=== PATIENT | female | born 1985 | race Caucasian/White ===

== ENCOUNTER 2017-03-10 09:05 | Inpatient (IN) | payer OTHER ==
[2017-03-10] VITALS (82 sets, daily range): BP systolic 106–143; BP diastolic 68–99; PULSE 99–142; RESP 17–19; TEMP 98–99.5; O2SAT 96–99
[~2017-03-10] VITALS: Ht 170.2 cm; Wt 74.0 kg
--- NOTE | 2017-03-10 10:02 | PD ---
HPI Chief Complaint Contractions Date Seen: Mar 10, 2017 Time Seen: 09:45 Travel History International Travel<30 Days: No Contact w/Intl Traveler<30Days: No Known Affected Area: No History of Present Illness HPI Patient is a 31-year-old at 39 weeks and 4 days who presents with contractions. She says that they first started around 5 AM, when they woke her up from sleep. Her contractions are as frequent as every 2-3 minutes. She also noticed some bloody show, or some brownish vaginal discharge on her panty liner and when she was wiping this morning. She denies any leakage of fluid. She reports movement is at baseline. She is a patient of Dr. Singer. She says she is GBS negative. History Past Medical History Narrative Medical Patient reports a vaginal cyst Obstetric History Obstetric History She says this has been an uncomplicated so far. She did have one episode of high blood pressure to 140s over 90s, but that was an isolated episode. Past Surgical History Narrative Surgical Left cheek cyst removal, wisdom teeth removal Family History Narrative Family History Her mother and father of lung cancer, they were both smokers. Social History Narrative Social History She lives at home with her . Alcohol Use: No Tobacco Use: No Substance Abuse: No Allergies-Medications (Allergen,Severity, Reaction): Coded Allergies: hydrocodone (Verified Adverse Reaction, Mild, vomiting, 03/10/17) Comments Hydrocodone causes vomiting Review of Systems General / Constitutional: No: Fever, Chills Eyes: No: Visual changes HENT: No: Headaches Cardiovascular: No: Chest Pain or Discomfort Respiratory: No: Short of Breath Gastrointestinal: Abdominal Pain, No: Nausea, Vomiting Genitourinary: No: Dysuria Musculoskeletal: Cramping, Pain, No: Edema Physical Exam bp 125/80, 131/91 Pulse 101-117 Respirations 18 Narrative GENERAL: Well-nourished, well-developed patient. SKIN: Warm and dry. HEAD: Normocephalic and atraumatic. EYES: No scleral icterus. No injection or drainage. ENT: No nasal drainage noted. Mucous membranes pink. Airway patent. NECK: Supple, trachea midline. No JVD. CARDIOVASCULAR: Regular rate and rhythm without murmurs, gallops, or rubs. RESPIRATORY: Breath sounds equal bilaterally. No accessory muscle use. ABDOMEN/GI: Abdomen soft, non-tender, bowel sounds present, no rebound, no guarding Gravid to 40 weeks size GENITOURINARY: External Genitalia: intact and normal in appearance Dilatation: 6-7 cm Effacement: 80% Station: -1 Presentation: Vertex Membranes: Tact Uterine Contractions: Every 3 minutes FHT's: Category: Category 1 Baseline: 130 Reactive: Reactive Variability: Moderate Decels: none EXTREMITIES: No cyanosis or edema. BACK: Nontender without obvious deformity. No CVA tenderness. NEUROLOGICAL: Awake and alert. Motor and sensory grossly within normal limits. Five out of 5 muscle strength in all muscle groups. Normal speech. Data Data Vital Signs Reviewed: Yes MDM Plan Patient is a 31-year-old at 39 weeks and 4 days who presents with contractions and cervical exam showing 6 cm of dilation, 80% effacement, -1 station. She is a patient of Dr. Singer. She says she is GBS negative. 1. Patient in labor -Plan to admit for routine labor and delivery -LR IV -Fentanyl when necessary for pain -Routine blood work including blood type and screen, hold clot, CBC, UDS, UA -Monitor heart rate, vital signs, labor status/tocometry -Patient considering epidural -Anticipate normal vaginal delivery Discussed with Dr. Villanueva Diagnosis Diagnosis: Primary Impression: Admitted to labor and delivery Elvin Taylor MD R2 Mar 10, 2017 10:02
[2017-03-10] MEDS ORDERED: LACTATED RINGER'S 1000 ML INJ 1,000 ML IV PRN (10:44)
[2017-03-10] MEDS ORDERED: LIDOCAINE HCL 1% 50 ML VIAL INFIL PRN (10:45)
[2017-03-10] MEDS ORDERED: SODIUM CHLORID 0.9% 500 ML INJ 500 ML OTHER PRN (10:45)
[2017-03-10] MEDS ORDERED: MINERAL OIL 10 ML VIAL TOPICAL PRN (10:45)
[2017-03-10] MEDS ORDERED: CITRIC ACID-SODIUM CITRATE LIQ 30 ML UDC PO SCH (10:45)
[2017-03-10] MEDS ORDERED: LIDOCAINE HCL 1% 50 ML VIAL I-DERMAL PRN (10:45)
[2017-03-10] MEDS ORDERED: OXYTOCIN 30 UNITS-500ML PREMIX 500 ML IV ONE ×3 (10:45→21:15)
--- NOTE | 2017-03-10 10:50 | HHI.HP ---
History & Physical H&P HPI HPI Chief Complaint Contractions Date Seen: Mar 10, 2017 Time Seen: 09:45 Travel History International Travel<30 Days: No Contact w/Intl Traveler<30Days: No Known Affected Area: No History of Present Illness HPI Patient is a 31-year-old at 39 weeks and 4 days who presents with contractions. She says that they first started around 5 AM, when they woke her up from sleep. Her contractions are as frequent as every 2-3 minutes. She also noticed some bloody show, or some brownish vaginal discharge on her panty liner and when she was wiping this morning. She denies any leakage of fluid. She reports movement is at baseline. She is a patient of Dr. Singer. She says she is GBS negative. History (Limited) History Past Medical History Narrative Medical Patient reports a vaginal cyst Obstetric History Obstetric History She says this has been an uncomplicated so far. She did have one episode of high blood pressure to 140s over 90s, but that was an isolated episode. Past Surgical History Narrative Surgical Left cheek cyst removal, wisdom teeth removal Family History Narrative Family History Her mother and father of lung cancer, they were both smokers. Social History Narrative Social History She lives at home with her . Alcohol Use: No Tobacco Use: No Substance Abuse: No Allergies-Medications Allergies-Medications (Allergen,Severity, Reaction): Coded Allergies: hydrocodone (Verified Adverse Reaction, Mild, vomiting, 03/10/17) Comments Hydrocodone causes vomiting ROS Review of Systems General / Constitutional: No: Fever, Chills Eyes: No: Visual changes HENT: No: Headaches Cardiovascular: No: Chest Pain or Discomfort Respiratory: No: Short of Breath Gastrointestinal: Abdominal Pain, No: Nausea, Vomiting Genitourinary: No: Dysuria Musculoskeletal: Cramping, Pain, No: Edema Physical Exam Physical Exam bp 125/80, 131/91 Pulse 101-117 Respirations 18 Narrative GENERAL: Well-nourished, well-developed patient. SKIN: Warm and dry. HEAD: Normocephalic and atraumatic. EYES: No scleral icterus. No injection or drainage. ENT: No nasal drainage noted. Mucous membranes pink. Airway patent. NECK: Supple, trachea midline. No JVD. CARDIOVASCULAR: Regular rate and rhythm without murmurs, gallops, or rubs. RESPIRATORY: Breath sounds equal bilaterally. No accessory muscle use. ABDOMEN/GI: Abdomen soft, non-tender, bowel sounds present, no rebound, no guarding Gravid to 40 weeks size GENITOURINARY: External Genitalia: intact and normal in appearance Dilatation: 6-7 cm Effacement: 80% Station: -1 Presentation: Vertex Membranes: Tact Uterine Contractions: Every 3 minutes FHT's: Category: Category 1 Baseline: 130 Reactive: Reactive Variability: Moderate Decels: none EXTREMITIES: No cyanosis or edema. BACK: Nontender without obvious deformity. No CVA tenderness. NEUROLOGICAL: Awake and alert. Motor and sensory grossly within normal limits. Five out of 5 muscle strength in all muscle groups. Normal speech. Data Data Data Vital Signs Reviewed: Yes MDM MDM Plan Patient is a 31-year-old at 39 weeks and 4 days who presents with contractions and cervical exam showing 6 cm of dilation, 80% effacement, -1 station. She is a patient of Dr. Singer. She says she is GBS negative. 1. Patient in labor -Plan to admit for routine labor and delivery -LR IV -Fentanyl when necessary for pain -Routine blood work including blood type and screen, hold clot, CBC, UDS, UA -Monitor heart rate, vital signs, labor status/tocometry -Patient considering epidural -Anticipate normal vaginal delivery Discussed with Dr. Villanueva Diagnosis Diagnosis: Primary Impression: Admitted to labor and delivery Elvin Taylor MD R2 Mar 10, 2017 10:50
[2017-03-10] MEDS ORDERED: PREN29TA PO (10:54)
[2017-03-10] MEDS ORDERED: FERR1TAB37 PO (10:54)
[2017-03-10] MEDS ORDERED: ZANT150T2 PO (10:55)
[2017-03-10 10:56] LABS: AUTOMATED NEUTROPHIL # 9.8 TH/MM3 (1.8-7.7); BASOPHIL % 0.3 % (0.0-2.0); EOSINOPHIL # 0.1 TH/MM3 (0-0.4); EOSINOPHIL % 0.5 % (0.0-4.0); HEMATOCRIT 38.9 % (35.0-46.0); HEMO FLAGS DIFF FINAL; LYMPH % 14.7 % (9.0-44.0); LYMPHOCYTE # 1.8 TH/MM3 (1.0-4.8); MEAN CELL VOLUME 92.6 FL (80.0-100.0); MEAN CORPUSCULAR HEMOGLOBIN 32.6 PG (27.0-34.0); MEAN CORPUSCULAR HGB CONC 35.2 % (32.0-36.0); MONO % 5.9 % (0.0-8.0); NEUT % 78.6 % (16.0-70.0); PLATELET COUNT 204 TH/MM3 (150-450); WHITE BLOOD COUNT 12.5 TH/MM3 (4.0-11.0)
[2017-03-10] MEDS ORDERED: COLA100C5 (10:57)
[2017-03-10] MEDS ORDERED: colace PO (10:57)
[2017-03-10 11:04] LABS: BACTERIA, URINE OCC /hpf; BLOOD, URINE MOD (NEG); COMMENT (UR) CULT NOT INDICATED; CULTURE IF INDICATED CULT NOT INDICATED; GLUCOSE,URINE NEG (NEG); KETONE, URINE NEG (NEG); MUCUS URINE FEW /lpf (OCC); NITRITE,URINE NEG (NEG); SQUAMOUS EPITHELIAL CELL URINE 14 /hpf (0-5); URINE COLOR YELLOW (YELLW/STRAW)
[2017-03-10] MEDS ORDERED: SODIUM CHLOR 0.9% 1000 ML INJ 1,000 ML OTHER PRN (11:04)
[2017-03-10] MEDS: LACTATED RINGER'S 1000 ML INJ 1,000 ML IV SCH ×2 (12:32→13:20)
[2017-03-10] MEDS ORDERED: fentaNYL 2MCG-BUPIV 0.125% INJ 100 ML ONE (12:48)
[2017-03-10] MEDS ORDERED: ePHEDrine/NS 25 MG/5 ML SYR IV PUSH PRN (14:00)
[2017-03-10] MEDS ORDERED: NO SYSTEM NARCOTICS PRN (14:00)
[2017-03-10] MEDS ORDERED: DO NOT ADMINISTER ANTICOAGULANTS PRN (14:00)
[2017-03-10] MEDS ORDERED: BUPIVACAINE HCL PF 0.25% 10 ML VIAL ONE (15:46)
[2017-03-10] MEDS ORDERED: LIDOCAINE HCL 1.5% PF SOLN 20 ML AMP ONE (15:46)
[2017-03-10] MEDS: fentaNYL 2MCG-BUPIV 0.125% 100 ML EPIDURAL SCH ×2 (19:06→19:07)
[2017-03-10] MEDS ORDERED: KETOROLAC TROMETHAMINE 60 MG/2 ML (IM) VIAL IM ONE ×2 (20:22→21:13)
[2017-03-10] MEDS ORDERED: EPIDURAL-DO NOT ADMINISTER ANTICOAGULANTS PRN (20:22)
[2017-03-10] MEDS ORDERED: ACETAMINOPHEN 1000 MG/100 ML 100 ML IV ONE ×3 (20:22→21:15)
[2017-03-10] MEDS ORDERED: EPIDURAL-DIPHENHYDRAMINE HCL 50 MG CAP PO PRN (20:22)
[2017-03-10] MEDS ORDERED: EPIDURAL-NO SYSTEMIC NARCOTICS PRN (20:22)
[2017-03-10] MEDS ORDERED: EPIDURAL-DIPHENHYDRAMINE HCL 50 MG/ML VIAL IV PUSH PRN (20:22)
[2017-03-10] MEDS ORDERED: EPIDURAL-NALOXONE HCL 0.4 MG/ML AMP IV PUSH PRN (20:22)
[2017-03-10] MEDS ORDERED: KETOROLAC TROMETHAMINE 30 MG/ML (IVP) VIAL IV PUSH ONE (20:22)
[2017-03-10] MEDS ORDERED: ONDANSETRON HCL 4 MG/2 ML VIAL IV PUSH PRN (21:15)
[2017-03-10] MEDS ORDERED: oxyCODONE/ACETAMINOPHEN 5 MG/325 MG TAB PO PRN (21:15)
[2017-03-10] MEDS ORDERED: SODIUM CHLORIDE 0.9% FLUSH 10 ML FLUSH IV FLUSH PRN (21:15)
[2017-03-10] MEDS ORDERED: DOCUSATE SODIUM 50 MG/SENNA 8.6 MG TAB PO PRN (21:15)
[2017-03-10] MEDS ORDERED: SIMETHICONE 80 MG CHEWABLE TAB PO PRN (21:15)
[2017-03-10] MEDS ORDERED: DEXAMETHASONE SOD PHOS PF 10 MG/ML VIAL ONE (21:38)
[2017-03-10] MEDS ORDERED: BUPIVACAINE HCL PF 0.5% 30 ML VIAL ONE (21:38)
--- NOTE | 2017-03-10 22:14 | MP ---
cc: EDWIN SINGER DATE OF SURGERY: 03/10/2017 PREOPERATIVE DIAGNOSIS: 1. Intrauterine at term. 2. Transverse arrest of descent. 3. Large sebaceous cyst above the clitoris measuring 1 x 1 cm. POSTOPERATIVE DIAGNOSIS 1. Intrauterine at term. 2. Transverse arrest of descent. 3. Large sebaceous cyst above the clitoris measuring 1 x 1 cm. PROCEDURE: Primary low transverse section, removal of large sebaceous cyst above the clitoris. ANESTHESIA: Epidural. SURGEON: Fritz Singer MD. FINDINGS: Normal male , Apgars 9 and 10, weight 9 pounds 4 ounces, normal tubes, normal ovaries, normal uterus, large sebaceous cyst just above the clitoris which is approximately 1 cm. COMPLICATIONS: None. COUNTS: Correct. ESTIMATED BLOOD LOSS: 550 cc. FLUIDS: Crystalloid DISPOSITION: The patient tolerated the procedure well, went to the Recovery Room in good condition. INDICATIONS FOR PROCEDURE: This is a patient who came in labor and actively went to complete-complete without any difficulty. She pushed for about two hours. She did not even enter the pelvis. She still was at 0 station. Despite her not wanting a , I told her we needed to do this because the baby arrested in descent. She agreed to proceed. We also were going to that out that sebaceous cyst. PROCEDURE IN DETAIL: Under an adequate level of anesthesia, she was prepped and draped for abdominal surgery. A Pfannenstiel incision was made and carried down to the fascia. The fascia was taken off the rectus muscle by blunt and sharp dissection. The rectus muscles were spread bluntly and the peritoneum was entered under direct vision without difficulty. The incision was extended with care to avoid the urinary bladder. A bladder blade was placed and a bladder flap created in the usual fashion. The uterine incision was made in a transverse manner along the lower uterine segment which was not well-developed. It was taken down in the midline until the intrauterine cavity was entered. A large amount of clear fluid was noted. The vertex was grasped with a suction cup and delivered. The hypopharynx and nasopharynx were suctioned and the remainder of the infant delivered without difficulty. The cord was doubly clamped and cut and the infant handed to the resuscitation team present. The placenta was then delivered manually. The uterus was curettaged twice with a wet lap and irrigated with a large amount of fluid. The uterine incision was then repaired with 2-0 Vicryl in a running locking fashion, with the second layer imbricating the first. Hemostasis was excellent. The cul-de-sac and gutters were cleaned of blood and debris. The uterus was delivered back into the abdomen. The rectus muscles were reapproximated with 0 Vicryl in interrupted fashion. The fascia was repaired from lateral to midline with 0 Vicryl and the subcu was repaired with 3-0 Vicryl. The skin was repaired with a 4-0 Vicryl in a subcuticular manner. The wound was sterilely dressed. We made a vertical incision onto the sebaceous cyst. There was a large amount of sebaceous material. We grasped the capsule of the cyst and gently tugged that out. The entire capsule, I believe, was removed. Bleeding was minimal. A Steri-Strip was placed over the incision. She tolerated that well. She went to the recovery room in satisfactory condition. R. MD GWYN Orellana/VIVI /9:22 PM /9:47 PM
[2017-03-11] MEDS ORDERED: LACTATED RINGER'S 1000 ML INJ 1,000 ML IV SCH (02:12)
[2017-03-11 04:00] VITALS: BP 133/85; PULSE 90; RESP 17; TEMP 99; O2SAT 96
[2017-03-11 06:15] LABS: AUTOMATED NEUTROPHIL # 16.6 TH/MM3 (1.8-7.7); HEMATOCRIT 30.9 % (35.0-46.0); HEMO FLAGS DIFF FINAL; LYMPH % 6.9 % (9.0-44.0); LYMPHOCYTE # 1.3 TH/MM3 (1.0-4.8); MEAN CELL VOLUME 93.4 FL (80.0-100.0); MEAN CORPUSCULAR HEMOGLOBIN 32.1 PG (27.0-34.0); MEAN CORPUSCULAR HGB CONC 34.3 % (32.0-36.0); MONO % 5.8 % (0.0-8.0); NEUT % 87.3 % (16.0-70.0); PLATELET COUNT 178 TH/MM3 (150-450); RED BLOOD COUNT 3.31 MIL/MM3 (4.00-5.30); RED CELL DISTRIBUTION WIDTH 13.7 % (11.6-17.2)
[2017-03-11] MEDS ORDERED: OXYTOCIN 30 UNITS-500ML PREMIX 500 ML IV PRN (07:15)
[2017-03-11 07:24] VITALS: BP 130/75; PULSE 100; RESP 18; TEMP 98.9; O2SAT 95
[2017-03-11] MEDS ORDERED: SODIUM CHLORIDE 0.9% FLUSH 10 ML FLUSH IV FLUSH SCH (09:00)
[2017-03-11] MEDS ORDERED: MULTIVIT/MIN/PREN/FOL AC/IRON PRENATAL TAB PO SCH (09:00)
[2017-03-11] MEDS ORDERED: FAMOTIDINE 20 MG TAB PO SCH (09:00)
[2017-03-11] MEDS ORDERED: NON-FORMULARY DRUG (Ranitidine (Zantac) 150 MG) PO SCH (09:00)
[2017-03-11 11:08] VITALS: BP 117/77; PULSE 98; RESP 20; TEMP 98; O2SAT 96
--- NOTE | 2017-03-11 11:29 | HHI.OB ---
Subjective Post Operative Day: 1 Objective Vitals/I&O Vital Signs Date Time Temp Pulse Resp B/P (MAP) Pulse Ox O2 Delivery O2 Flow Rate FiO2 03/11/17 11:08 98.0 96 03/11/17 11:08 98 20 117/77 (90) 03/11/17 07:24 98.9 100 18 130/75 (93) 95 03/11/17 04:00 99.0 17 96 03/11/17 04:00 90 133/85 (101) 03/10/17 23:45 105 18 127/84 (98) 99 03/10/17 23:45 98.6 03/10/17 22:15 107 18 126/80 (95) 03/10/17 22:15 98 03/10/17 22:05 119 18 122/69 (86) 97 03/10/17 21:50 136/69 (91) 03/10/17 21:50 111 18 96 03/10/17 21:35 97 03/10/17 21:35 116 125/68 (87) 03/10/17 21:35 18 03/10/17 21:10 120 18 119/70 (86) 03/10/17 21:10 99.5 98 03/10/17 19:45 137 03/10/17 19:40 133 03/10/17 19:35 139 03/10/17 19:30 135 03/10/17 19:25 134 03/10/17 19:20 130 03/10/17 19:15 135 03/10/17 19:10 136 03/10/17 19:09 18 03/10/17 19:05 134 03/10/17 19:00 142 03/10/17 18:55 139 03/10/17 18:51 98.5 128 18 106/88 (94) 03/10/17 18:50 126 03/10/17 18:45 125 03/10/17 18:40 121 03/10/17 18:35 125 03/10/17 18:30 118 03/10/17 18:00 19 03/10/17 17:55 133 03/10/17 17:50 122 03/10/17 17:45 123 03/10/17 17:40 127 03/10/17 17:35 126 03/10/17 17:30 133 03/10/17 17:15 18 03/10/17 17:10 137 03/10/17 17:05 140 03/10/17 17:00 126 120/70 (87) 03/10/17 16:25 98.2 03/10/17 16:25 134 03/10/17 16:20 135 03/10/17 16:15 131 03/10/17 16:05 133 03/10/17 16:00 127 123/85 (98) 03/10/17 16:00 129 03/10/17 15:45 18 03/10/17 15:40 126 03/10/17 15:35 121 03/10/17 15:30 121 03/10/17 15:30 127 126/72 (90) 03/10/17 15:15 98.0 03/10/17 15:00 120 129/75 (93) 03/10/17 14:45 18 03/10/17 14:40 120 03/10/17 14:35 119 03/10/17 14:30 117 03/10/17 14:30 122 121/71 (88) 03/10/17 14:00 114 03/10/17 13:56 17 03/10/17 13:40 121/87 (98) 03/10/17 13:40 128 03/10/17 13:40 122 03/10/17 13:35 121 03/10/17 13:35 114 130/78 (95) 03/10/17 13:35 18 03/10/17 13:30 117 135/80 (98) 03/10/17 13:30 121 03/10/17 13:25 108 143/78 (99) 03/10/17 13:25 108 03/10/17 13:23 18 03/10/17 13:20 111 03/10/17 13:20 109 03/10/17 13:20 139/84 (102) 03/10/17 13:16 116 133/89 (104) 03/10/17 13:15 118 03/10/17 13:12 115 135/99 (111) 03/10/17 13:10 113 03/10/17 13:10 113 137/84 (101) 03/10/17 13:06 117 140/92 (108) 03/10/17 13:05 116 03/10/17 13:00 117 130/91 (104) 03/10/17 12:27 17 03/10/17 12:25 100 03/10/17 12:20 106 03/10/17 12:15 102 03/10/17 11:55 113 03/10/17 11:50 118 03/10/17 11:45 119 Result Diagram: 03/11/17 0525 Objective Remarks GENERAL: Well-nourished, well-developed patient. CARDIOVASCULAR: Regular rate and rhythm without murmurs, gallops, or rubs. RESPIRATORY: Breath sounds equal bilaterally. No accessory muscle use. ABDOMEN/GI: Abdomen soft, non-tender, bowel sounds present. Incision: dressing, Clean, dry and intact. Fundus: Firm, non-tender at umbilicus. GENITOURINARY: Light to moderate bleeding.,gonzáles to bsd clear yellow urine EXTREMITIES: No cyanosis or edema, non-tender, without signs of DVT., seq hose on Medications and IVs Current Medications Medications (Trade) Dose Ordered Sig/Teresa Route Start Time Stop Time Status Last Admin Lactated Ringer's 1,000 ml @ 100 mls/hr Q10H IV 03/11/17 02:12 03/11/17 22:11 03/11/17 02:54 Oxytocin 500 ml @ 100 mls/hr UNSCH X1 PRN IV 03/11/17 07:15 03/12/17 07:14 (NS Flush) 2 ml BID IV FLUSH 03/11/17 09:00 (NS Flush) 2 ml UNSCH PRN IV FLUSH 03/10/17 21:15 (Mylicon Chew) 80 mg QID PRN PO 03/10/17 21:15 (Motrin) 600 mg Q6H PRN PO 03/10/17 21:15 (Percocet 5-325 Mg) 1 tab Q4H PRN PO 03/10/17 21:15 (Percocet 5-325 Mg) 2 tab Q4H PRN PO 03/10/17 21:15 Cefazolin Sodium 1000 mg/Sodium Chloride 100 ml @ 200 mls/hr Q8H IV 03/11/17 04:00 03/11/17 12:29 03/11/17 04:13 (Jenny-Colace) 2 tab Q12H PRN PO 03/10/17 21:15 (M-M-R Ii Inj) 0.5 ml ONCE ONCE SQ 03/11/17 16:00 03/11/17 16:01 (Boostrix Inj) 0.5 ml ONCE ONCE IM 03/11/17 16:00 03/11/17 16:01 (Zofran Inj) 4 mg Q6H PRN IV PUSH 03/10/17 21:15 (Stuartnatal Plus 3 ) 1 tab DAILY PO 03/11/17 09:00 03/11/17 09:18 (Pepcid) 20 mg BID PO 03/11/17 09:00 Miscellaneous Information NO SYSTEMIC NARCOTICS TO BE GIVEN FO... UNSCH PRN .XX 03/10/17 20:22 03/11/17 20:21 (Narcan Inj) 0.4 mg UNSCH PRN IV PUSH 03/10/17 20:22 03/11/17 20:21 (Benadryl Inj) 25 mg Q6H PRN IV PUSH 03/10/17 20:22 03/11/17 20:21 (Benadryl) 50 mg Q6H PRN PO 03/10/17 20:22 03/11/17 20:21 Miscellaneous Information ALL NURSING DEPARTMENTS UNSCH PRN .XX 03/10/17 20:22 03/11/17 20:21 Assessment/Plan Problem List: (1) Anemia ICD Codes: D64.9 - Anemia, unspecified Qualifiers: (2) S/P primary low transverse ICD Codes: Z98.891 - History of uterine scar from previous surgery Assessment and Plan POD #1 pt doing well c/o itching all over, pt will get medicated pain well managed at this time bonding with , pt will shower today routine care Discharge Planning consider dc in 2 days Amberly Seay Mar 11, 2017 11:29
--- NOTE | 2017-03-11 11:48 | HHI.DCPOC ---
Discharge Care Plan Diagnosis: (1) Anemia (2) S/P primary low transverse Your Health Problems Are: delivery Report Symptoms to Your Doctor -Temperature above 100.5 degrees -Redness, of incision or excessive or foul smelling drainage -Unusual pain or calf pain -Increased vaginal bleeding -Painful or difficulty urinating -Feelings of extreme sadness or anxiety after 2 weeks Goals to Promote Your Health * To prevent worsening of your condition and complications * To maintain your health at the optimal level Directions to Meet Your Goals Take your medications as prescribed Follow your dietary instruction Follow activity as directed Ensure plenty of rest for recovery Drink fluids for hydration Keep your appointments as scheduled Take your immunizations and boosters as scheduled If your symptoms worsen call your PCP, if no PCP go to Urgent Care Center or Emergency Room Smoking is Dangerous to Your Health. Avoid second hand smoke Call the 24-hour crisis hotline for domestic abuse at Amberly Seay Mar 11, 2017 11:48
[2017-03-11] MEDS: IBUPROFEN 600 MG TAB PO PRN (12:06)
[2017-03-11] MEDS ORDERED: OXYC1TAB63 PO (15:15)
[2017-03-11] MEDS ORDERED: IBUP-232 PO (15:15)
[2017-03-11] MEDS ORDERED: DIPHTH/TETANUS/ACEL PERTUSSIS (BOOSTER) 0.5 ML VIAL/PFS IM ONE (16:00)
[2017-03-11] MEDS ORDERED: MEASLES, MUMPS, RUBELLA VACCINE 0.5 ML VIAL SQ ONE (16:00)
[2017-03-11] MEDS: ACETAMINOPHEN 325 MG TAB PO PRN ×2 (17:42→22:13)
[2017-03-11 18:25] VITALS: BP 104/67; PULSE 89
[2017-03-11 22:06] VITALS: BP 110/63; PULSE 91; RESP 18; TEMP 98.2
[2017-03-12] MEDS: IBUPROFEN 600 MG TAB PO PRN ×3 (00:33→12:39)
[2017-03-12] MEDS: oxyCODONE/ACETAMINOPHEN 5 MG/325 MG TAB PO PRN ×2 (06:25→11:33)
--- NOTE | 2017-03-12 08:16 | HHI.OB ---
Subjective Post Operative Day: 2 Remarks had issues with urinary retention overnight, gonzáles was replaced; had TAP block at time of Objective Vitals/I&O Vital Signs Date Time Temp Pulse Resp B/P (MAP) Pulse Ox O2 Delivery O2 Flow Rate FiO2 03/11/17 22:06 91 18 110/63 (79) 03/11/17 22:06 98.2 03/11/17 18:25 89 104/67 (79) 03/11/17 11:08 98.0 96 03/11/17 11:08 98 20 117/77 (90) Result Diagram: 03/11/17 0525 Objective Remarks GENERAL: Well-nourished, well-developed patient. CARDIOVASCULAR: Regular rate and rhythm without murmurs, gallops, or rubs. RESPIRATORY: Breath sounds equal bilaterally. No accessory muscle use. ABDOMEN/GI: Abdomen soft, non-tender, bowel sounds present. Incision: dressing, Clean, dry and intact. Fundus: Firm, non-tender at umbilicus. GENITOURINARY: Light to moderate bleeding.,gonzáles to bsd clear yellow urine EXTREMITIES: No cyanosis or edema, non-tender, without signs of DVT. Medications and IVs Current Medications Medications (Trade) Dose Ordered Sig/Teresa Route Start Time Stop Time Status Last Admin (NS Flush) 2 ml BID IV FLUSH 03/11/17 09:00 (NS Flush) 2 ml UNSCH PRN IV FLUSH 03/10/17 21:15 (Mylicon Chew) 80 mg QID PRN PO 03/10/17 21:15 (Motrin) 600 mg Q6H PRN PO 03/10/17 21:15 03/12/17 06:25 (Percocet 5-325 Mg) 1 tab Q4H PRN PO 03/10/17 21:15 03/12/17 06:25 (Percocet 5-325 Mg) 2 tab Q4H PRN PO 03/10/17 21:15 03/12/17 02:19 (Jenny-Colace) 2 tab Q12H PRN PO 03/10/17 21:15 (Zofran Inj) 4 mg Q6H PRN IV PUSH 03/10/17 21:15 (Stuartnatal Plus 3 ) 1 tab DAILY PO 03/11/17 09:00 03/11/17 09:18 (Pepcid) 20 mg BID PO 03/11/17 09:00 (Tylenol) 650 mg Q4H PRN PO 03/11/17 15:30 03/11/17 22:13 Assessment/Plan Problem List: (1) S/P primary low transverse ICD Codes: Z98.891 - History of uterine scar from previous surgery Status: Acute (2) Anemia ICD Codes: D64.9 - Anemia, unspecified Qualifiers: Assessment and Plan POD #2 pt w urinary retention overnight, unable to void; suspect related to TAP block will d/c gonzáles today & see if able to void good output in gonzáles bag routine d/c planning Discharge Planning consider dc in 2 days Etelvina Braden MD Mar 12, 2017 08:16
[2017-03-12] MEDS ORDERED: PERI PO (08:19)
[2017-03-12 08:45] VITALS: BP 119/74; PULSE 79; RESP 18; TEMP 97.4
== END 2017-03-12 14:40 | disposition home or self-care (01) | DRG 766 ==
LOC: HOBED 09:05 → H2EB 10:05 → H1EA 22:48
PROVIDERS: ADMIT Obstetrics & Gynecology; ATTEND Obstetrics & Gynecology
PROC: 10D00Z1 Extraction of Products of Conception, Low, Open Approach (ICD-10-PCS; principal; 2017-03-10)
PROC: 0UB Female Reproductive System, Excision (ICD-10-PCS; 2017-03-10)
PROC: 3E0R3BZ Introduction of Anesthetic Agent into Spinal Canal, Percutaneous Approach (ICD-10-PCS; 2017-03-10)
PROC: 00HU33Z Insertion of Infusion Device into Spinal Canal, Percutaneous Approach (ICD-10-PCS; 2017-03-10)
DX: O62.1 Secondary uterine inertia (principal); D64.9 Anemia, unspecified; Z37.0 Single live birth; N89.8 Other specified noninflammatory disorders of vagina; Z3A.39 39 weeks gestation of pregnancy; O99.72 Diseases of the skin and subcutaneous tissue complicating childbirth; O99.02 Anemia complicating childbirth; L72.3 Sebaceous cyst; R33.9 Retention of urine, unspecified
CPT/HCPCS: 59025; 80307; 81001; 85025; 86850; 86900; 86901; J0131; J0690; J1100; J1885; J7120